=== PATIENT | male | born 1960 | race Caucasian/White ===

== ENCOUNTER 2016-10-28 13:39 | Emergency (ER) | payer OTHER ==
[~2016-10-28] VITALS: Ht 170.2 cm; Wt 79.0 kg
[~2016-10-28 13:39] MED LIST: ATOR20TA86 PO; BUPR100 PO; CLON.5 PO; DULO30CA2 PO; OXYC5 PO; PARO20TA24 PO
[2016-10-28] MEDS ORDERED: METF500T4 PO (13:43)
[2016-10-28 13:52] LABS: GLUCOSE,POINT OF CARE 95 MG/DL (70-110)
[2016-10-28] MEDS ORDERED: CEFTAROLINE 600 MG/D5W 250 ML IV ONE (16:00)
[2016-10-28] MEDS ORDERED: KETOROLAC TROMETHAMINE 30 MG/ML VIAL IVP ONE (16:00)
[2016-10-28] MEDS ORDERED: TETANUS IMMUNE GLOBULIN 250 UNITS/SYRINGE IM ONE (16:00)
[2016-10-28 18:46] VITALS: BP 118/78
== END 2016-10-28 18:48 | disposition home or self-care (01) ==
LOC: EMS 13:42
DX: S91.331A Puncture wound without foreign body, right foot, initial encounter (principal); L03.115 Cellulitis of right lower limb; L02.611 Cutaneous abscess of right foot; E11.9 Type 2 diabetes mellitus without complications; E78.00 Pure hypercholesterolemia, unspecified; F17.210 Nicotine dependence, cigarettes, uncomplicated; F12.10 Cannabis abuse, uncomplicated; I25.2 Old myocardial infarction; I10 Essential (primary) hypertension; Z86.73 Personal history of transient ischemic attack (TIA), and cerebral infarction without residual deficits; Z59.0 Homelessness; Z88.8 Allergy status to other drugs, medicaments and biological substances; W45.0XXA Nail entering through skin, initial encounter; Y93.89 Activity, other specified; Y92.89 Other specified places as the place of occurrence of the external cause; Y99.9 Unspecified external cause status
CPT/HCPCS: 73630; 82962; 93005; 96365; 96372; 96375; 99284; J0712; J1670; J1885